=== PATIENT | male | born 1975 | race Hispanic/Latino ===

== ENCOUNTER 2018-10-02 19:55 | Emergency (ER) | payer SELFPAY, OTHER ==
[2018-10-02 20:26] LABS: Bilirubin Small (Negative); Clarity Clear (Clear); Glucose, Urine (Dipstick) Negative (Negative); Leukocyte Negative (Negative); Nitrite Negative (Negative); Protein, Urine (Dipstick) Negative (Neg-Trace); Specific Gravity, Urine 1.006 (1.005-1.030); Urobilinogen 0.2 mg/dL (0.2-1.0)
[2018-10-02 20:27] LABS: Blood, Urine Moderate (Negative)
[2018-10-02 20:31] LABS: Bacteria/HPF Rare-Few HPF (None Seen); RBC/HPF 0-3 HPF (0-3); Squamous Epithelial 0-3 HPF (0-3); WBC/HPF 0-3 HPF (0-3)
[2018-10-02 20:33] LABS: Crystals/HPF RARE CA OXALATE HPF (Negative)
[2018-10-02 20:53] LABS: ALT (SGPT) 59 U/L (8-55); AST (SGOT) 271 U/L (5-34); Albumin 3.3 g/dL (3.5-5.0); Alcohol 220 mg/dL (Less than 10); Alkaline Phosphatase 290 U/L (40-150); Anion Gap 21 mmol/L (10-20); BUN (Urea Nitrogen) Less than 4 mg/dL (8.9-20.6); Bilirubin, Total 5.3 mg/dL (0.2-1.2); Calc. Creatinine Clearance 0 mL/min (70-130); Calcium 8.9 mg/dL (7.8-10.44); Carbon Dioxide 30 mmol/L (22-29); Chloride 90 mmol/L (98-107); Estimated GFR-MDRD Greater than 90; Globulin 3.6 g/dL (2.4-3.5); Glucose 102 mg/dL (70-105); Protein, Total 6.9 g/dL (6.0-8.3); Sodium 138 mmol/L (136-145)
[2018-10-02 20:55] LABS: Potassium 2.5 mmol/L (3.5-5.1)
[2018-10-02] MEDS ORDERED: Ketorolac Tromethamine 30 MG/ML VIAL ONE (20:59)
[2018-10-02 21:09] LABS: #Basophils 0.1 thou/uL (0.0-0.2); #Lymphocytes 1.7 thou/uL (1.20-3.40); #Neutrophils 11.7 thou/uL (1.40-6.50); %Basophils 0.7 % (0.0-1.0); %Eosinophils 0.2 % (0.0-10.0); %Lymphocytes 11.4 % (21.0-51.0); %Monocytes 6.7 % (0.0-10.0); %Neutrophils 80.9 % (42.0-75.0); Hemoglobin 12.7 g/dL (14.0-18.0); MDiff Complete? YES; Mean Corpuscular HGB CONC 36.8 g/dL (32.0-36.0); Mean Corpuscular Hemoglobin 34.6 pg (27.0-31.0); Mean Platelet Volume 6.1 fL (7.4-10.4); PLT Morphology Comment Appears Adequate; Platelet Count 347 thou/uL (130-400); Polychromasia SLIGHT = 2-3 cells (100X) (0-2/hpf); RBC Distribution Width 12.7 % (11.5-14.5); Red Blood Cell (RBC) Count 3.68 mill/uL (4.70-6.10); Stomatocytes SLIGHT = 2-5 cells (100X) (0-1/hpf); Target Cells SLIGHT = 2-5 cells (100X) (0-1/hpf); White Blood Cell (WBC) Count 14.5 thou/uL (4.8-10.8)
--- NOTE | 2018-10-02 22:12 | CT ---
CT ABDOMEN AND PELVIS WITHOUT CONTRAST: 10/02/2018 HISTORY: A spiral CT of the abdomen and pelvis was performed for abdominal bloating and pain. TECHNIQUE: Axial slices were acquired without any oral or IV contrast, and coronal and sagittal reconstructions were then done. FINDINGS: ABDOMEN: The lung bases are clear, except for some minor dependent atelectasis. the major finding o n the study is tremendous enlargement of the liver with diffuse fatty infiltration. No internal spac e occupying disease or dilated ducts are seen. The spleen is normal in size. The pancreas is unrema rkable. No stones are seen in the gallbladder. The kidneys show no mass or hydronephrosis. The kia cification in the left kidney may actually be vascular in nature, but there is certainly no obstructi on. The abdominal aorta shows no aneurysm. The bowel is nondistended, showing no sign of obstruction or kendra-intestinal streaking. No free air or free fluid is seen. Surgical clips are noted in the right lower quadrant, presumably from a prior appendectomy. PELVIS: No pelvis masses, fluid collections, or inflammatory changes. The thickness of the sigmoid wall is a little more prominent than elsewhere, but this may just be because it is collapsed. IMPRESSION: Tremendous hepatomegaly with diffuse fatty infiltration of the liver. POS: HOME
== END 2018-10-02 22:10 | disposition short-term general hospital (02) ==
LOC: BURERS 19:55
DX: E87.6 Hypokalemia (principal); R16.0 Hepatomegaly, not elsewhere classified; R17 Unspecified jaundice
CPT/HCPCS: 74176; 80053; 80307; 81003; 81015; 82140; 84484; 85025; 85730; 93005; 96374; J1885